=== PATIENT | female | born 1985 | race Caucasian/White ===

== ENCOUNTER 2017-01-03 17:41 | Emergency (ER) | payer BC, OTHER ==
[~2017-01-03] VITALS: Ht 172.7 cm; Wt 63.6 kg
[~2017-01-03 17:41] MED LIST: CEFTIN500 MG PO; CIPRO 500MG TA500 MG PO; DOXYCYCLINE 10100 MG PO; MIRENA52 MG IU; NO HOME MEDICATIONS; NORCO 325 MG-51 TAB PO; PHENERGAN 25 TA25 MG PO; PREDNISONE10 MG PO
[2017-01-03 17:44] VITALS: BP 117/75; TEMP 98.4
[2017-01-03] MEDS ORDERED: NORCO 325 MG-51 TAB PO (18:42)
[2017-01-03 19:30] VITALS: PULSE 68
== END 2017-01-03 19:30 | disposition home or self-care (01) ==
LOC: COL.ER 17:41
DX: S83.91XA Sprain of unspecified site of right knee, initial encounter (principal); W18.2XXA Fall in (into) shower or empty bathtub, initial encounter
CPT/HCPCS: L1830

== ENCOUNTER 2019-01-26 08:25 | Day surgery (SDC) | payer BC ==
[~2019-01-26] VITALS: Ht 172.7 cm; Wt 72.5 kg
[2019-01-26 09:07] VITALS: BP 138/89; PULSE 106; TEMP 97.6
[2019-01-26] MEDS ORDERED: NORCO 325 MG-51 TAB PO (11:32)
[2019-01-26 11:34] VITALS: BP 108/63; PULSE 91
--- NOTE | 2019-01-26 11:34 | NUR ---
Patient returns to room 2 per cart from PACU and arouses to verbal stimuli. Temp 97.7 and room air sats 95%. Bandaid on abdomen clean and dry. IV fluids infusing and site is free of redness. Siderails up x2 and call light in reach. Spouse in room and allowed to rest.
[2019-01-26 11:49] VITALS: BP 107/68; PULSE 69
--- NOTE | 2019-01-26 11:49 | NUR ---
Resting and taking water.
--- NOTE | 2019-01-26 11:49 | NUR ---
Taking sips of water and denies pain or nausea.
[2019-01-26 12:04] VITALS: BP 112/63; PULSE 69
--- NOTE | 2019-01-26 12:04 | NUR ---
Eating toast and drinking water.
--- NOTE | 2019-01-26 12:19 | NUR ---
Tolerating toast and water. Spouse in room. States that she is beginning to have incisional pain.
--- NOTE | 2019-01-26 12:25 | NUR ---
Medicated with [place] 5mg one tab for incisional pain at 7-8/10. Instructed that she can take another pain pill in three hours and to take pain pills with food.
--- NOTE | 2019-01-26 12:29 | NUR ---
Patient was given Toradol 30mg IV for pain at 7-8/10 in addition to [place] 5mg one tab. Toradol was not given in surgery.
--- NOTE | 2019-01-26 12:45 | NUR ---
Sitting up on the edge of the cart and is dressing with assist of spouse. Denies further pain and states that she is feeling well. Denies nausea. IV discontinued and site is free of redness.
--- NOTE | 2019-01-26 12:53 | NUR ---
Given dismissal instructions and voices understanding of home cares and follow up as scheduled. [place] 5mg script given to patient. Provided office number for questions and concerns.
--- NOTE | 2019-01-26 12:55 | NUR ---
Patient taken per wheelchair to the frontdoor and assisted into car with instructions in hand.
== END 2019-01-26 12:55 | disposition home or self-care (01) ==
LOC: SDCO 08:25
DX: K42.9 Umbilical hernia without obstruction or gangrene (principal); G43.909 Migraine, unspecified, not intractable, without status migrainosus; N39.0 Urinary tract infection, site not specified
CPT/HCPCS: J0690; J1885; J2250; J2704; J7120

== ENCOUNTER 2019-10-13 21:15 | Emergency (ER) | payer SELFPAY ==
[~2019-10-13] VITALS: Ht 170.2 cm; Wt 70.5 kg
[2019-10-13 21:18] VITALS: BP 156/86; TEMP 97.2
[2019-10-13] MEDS ORDERED: CLEOCIN HCL300 MG PO (22:34)
[2019-10-13 22:50] VITALS: PULSE 68
== END 2019-10-13 22:50 | disposition home or self-care (01) ==
LOC: COL.ER 21:15
DX: K02.9 Dental caries, unspecified (principal)

== ENCOUNTER 2021-10-11 17:24 | Emergency (ER) | payer BC ==
[~2021-10-11] VITALS: Ht 170.2 cm; Wt 79.5 kg
[~2021-10-11 17:24] MED LIST changes: +CLEOCIN HCL300 MG PO
[2021-10-11 17:30] VITALS: TEMP 98.2
[2021-10-11 18:14] VITALS: BP 140/95; PULSE 77
== END 2021-10-11 18:14 | disposition home or self-care (01) ==
LOC: COL.ER 17:24
DX: U07.1 COVID-19 (principal); S89.91XA Unspecified injury of right lower leg, initial encounter; M54.2 Cervicalgia; Z73.0 Burn-out; X58.XXXA Exposure to other specified factors, initial encounter